=== PATIENT | female | born 1945 | race Caucasian/White ===

== ENCOUNTER → 2020-06-28 | Outpatient (CLI) | payer MEDICARE ==
[~2020-06-28] MED LIST: ATIVAN0.5 MG PO; CALCIUM500 MG PO; DITROPAN XL5 MG PO; FISH OIL500 MG PO; GABAPENTIN300 MG PO; GARLIC400 M1 PO; LIPITOR20 MG PO; LORAZEPAM0.5 MG PO; MAGNESIUM400 MG PO; MELOXICAM7.5 MG PO; ULTRAM50 MG PO; VITAMIN C500 M2 PO
[2020-06-28 11:55] LABS: CREATININE, SERUM 1.82 mg/dL (0.57-1.11)
--- NOTE | 2020-06-28 14:17 | Diagnostic Imaging Report ---
ADDENDUM #1 Images of the pelvis are now available. The original exam is now being completed as a CT of the abdomen and pelvis without intravenous contrast. In addition to the previously discussed findings: There is increased stool burden in the rectum and prominent diverticulosis of the sigmoid colon. No CT evidence of diverticulitis. The pelvic organs appear unremarkable. Postoperative findings of right total hip replacement. No acute osseous injury of the pelvic osseous structures. The soft tissues of the pelvis appear unremarkable. No lymphadenopathy. Signed by: Marisol Rivera MD on 07/02/2020 12:59 PM ORIGINAL REPORT EXAM: CT Abdomen WITHOUT intravenous contrast INDICATION: Aortic aneurysm COMPARISON: CTA abdomen/pelvis of 01/23/2015 TECHNIQUE: The abdomen was scanned utilizing a multidetector helical scanner from the lung base to the iliac crest without administration of IV contrast. Coronal and sagittal reformations were obtained. Routine protocol was performed. IV CONTRAST: None ORAL CONTRAST: None RADIATION DOSE: Total DLP: 631 mGy*cm Dose modulation, iterative reconstruction, and/or weight based adjustment of the mA/kV was utilized to reduce the radiation dose to as low as reasonably achievable. FINDINGS: LOWER THORAX: Normal. HEPATOBILIARY: No focal liver lesions. Unremarkable gallbladder. SPLEEN: No splenomegaly. PANCREAS: No focal masses or ductal dilatation. ADRENALS: No adrenal nodules. KIDNEYS/URETERS: No left hydronephrosis or renal calculi. Nonvisualization of the right kidney. PERITONEUM / RETROPERITONEUM: No free air or fluid. LYMPH NODES: No lymphadenopathy. VESSELS: The infrarenal abdominal aortic aneurysm now measures up to 4.0 x 3.9 cm, increased from 01/23/2015 at which point it measured up to 3.2 cm (today's measurement). Moderate atherosclerotic calcifications of the aorta and major branches. No CT evidence of impending rupture. GI TRACT: Diverticulosis without CT evidence of diverticulitis. No abnormal bowel thickening. No bowel obstruction. BONES AND SOFT TISSUES: No acute osseous injury. No suspicious lytic or blastic lesions. Mild multilevel degenerative changes of the visualized spine. IMPRESSION: Increase in size of infrarenal abdominal aortic aneurysm which now measures up to 4.0 x 3.9 cm compared to 3.2 cm in 2015. Follow-up CTA is recommended in one year to assess for stability. Absent right kidney. Diverticulosis. Signed by: Marisol Rivera MD on 06/28/2020 2:13 PM
== END ==
LOC: CT 11:15
PROVIDERS: ATTEND Internal Medicine Cardiovascular Disease
DX: I71.4 Abdominal aortic aneurysm, without rupture (principal)
CPT/HCPCS: 36415; 74150; 74176; 82565; 84520

== ENCOUNTER → 2023-09-24 | Outpatient (REF) | payer MEDICARE ==
[~2023-09-24] MED LIST changes: +CEPHALEXIN500 MG PO
== END ==
LOC: CT 10:22
PROVIDERS: ATTEND Internal Medicine Infectious Disease
DX: N39.0 Urinary tract infection, site not specified (principal)
CPT/HCPCS: 74176

== ENCOUNTER 2024-03-06 11:17 | Inpatient (IN) | payer MEDICARE ==
[~2024-03-06] VITALS: Ht 154.9 cm; Wt 62.6 kg
[2024-03-06] VITALS (7 sets, daily range): BP systolic 115–138; BP diastolic 20–66; PULSE 64–84; RESP 18–20; TEMP 97.4–98.1; O2SAT 95–98
[2024-03-06 12:07] LABS: BASOPHILS % 0.4 % (0.0-1.0); EOSINOPHILS # (AUTO) 0.1 (0.0-0.4); EOSINOPHILS % 1.2 % (0.0-6.0); HEMATOCRIT 26.3 % (34.2-44.1); HEMOGLOBIN 8.5 g/dL (12.0-16.0); LYMPHOCYTES # (AUTO) 1.8 (1.0-3.2); LYMPHOCYTES % 24.3 % (18.0-39.1); MEAN CORPUSCULAR HEMOGLOBIN 37.6 pg (28-32); MEAN CORPUSCULAR HGB CONC 32.3 g/dL (31-35); MEAN CORPUSCULAR VOLUME 116.4 fL (81-99); MONOCYTES # (AUTO) 0.5 (0.2-0.8); MONOCYTES % 7.2 % (4.4-11.3); NEUTROPHILS % 66.5 % (38.7-80.0); PLATELET COUNT 197 x10e3/uL (140-360); RED BLOOD COUNT 2.26 x10e6/uL (3.6-5.1); RED CELL DISTRIBUTION WIDTH 15.1 % (11.7-14.4); WHITE BLOOD COUNT 7.52 x10e3/uL (4.8-10.8)
[2024-03-06 12:48] LABS: ALBUMIN/GLOBULIN RATIO 0.8 (0.8-2.0); ANION GAP 16.8 mmol/L (8-16); BILIRUBIN,TOTAL 0.3 mg/dL (0.2-1.2); CALCIUM 9.1 mg/dL (8.4-10.2); CREATININE, SERUM 3.94 mg/dL (0.57-1.11); MAGNESIUM 1.5 MG/DL (1.3-2.1); POTASSIUM 4.8 mmol/L (3.5-5.1); TOTAL PROTEIN 6.6 g/dL (6.5-8.1)
[2024-03-06 12:54] LABS: TROPONIN I 0.005 ng/mL (0-0.300)
[2024-03-06] MEDS: SODIUM CHLORIDE 0.9% 1000ML 1,000 ML IV ONE (13:03)
[2024-03-06] MEDS: METHYLPREDNISOLONE SOD SUCC 125 MG/2ML VIAL IV STA (13:03)
[2024-03-06] MEDS: Morphine 4mg INJECTION 4 MG/ML INJ IV ONE (13:13)
[2024-03-06] MEDS: ONDANSETRON HCL INJ 2MG/ML 2ML 2 MG/ML VIAL IV STA (13:13)
[2024-03-06 13:35] LABS: INR 1.1; PROTHROMBIN TIME 14.4 seconds (11.9-14.5)
[2024-03-06 13:36] LABS: PARTIAL THROMBOPLASTIN TIME 30.9 seconds (23.8-35.5)
[2024-03-06] MEDS: ALBUTEROL/IPRATROPIUM 3 ML NEB NEB SCH ×2 (13:38→18:57)
[2024-03-06] MEDS: BUMETANIDE INJ 0.25MG/ML 4ML VIAL IV SCH (15:16)
[2024-03-06] MEDS: SODIUM BICARBONATE 650 MG TAB PO SCH (15:16)
[2024-03-06 16:45] LABS: % IRON SATURATION 10 % (15-50); IRON 29 ug/dL (50-170); TOTAL IRON BINDING CAPACITY 277 ug/dL (261-478); TRANSFERRIN 198 mg/dL (180-382)
[2024-03-06] MEDS: METHYLPREDNISOLONE SOD SUCC 40 MG/ML VIAL 1ML IV SCH (17:54)
[2024-03-06 18:56] LABS: TROPONIN I 0.003 ng/mL (0-0.300)
[2024-03-06] MEDS ORDERED: METHYLPREDNISOLONE SOD SUCC 125 MG/2ML VIAL IV SCH (20:00)
[2024-03-06] MEDS: HEPARIN SOD (PORCINE) 5,000 UNIT/ML VIAL SC SCH (21:24)
[2024-03-07] VITALS (9 sets, daily range): BP systolic 118–127; BP diastolic 54–68; PULSE 70–83; RESP 16–20; TEMP 97.6–98.3; O2SAT 93–100
[2024-03-07 01:57] LABS: CREATINE KINASE 32 IU/L (29-168)
[2024-03-07 02:05] LABS: TROPONIN I < 0.001 ng/mL (0-0.300)
[2024-03-07 05:42] LABS: HEMATOCRIT 22.7 % (34.2-44.1); HEMOGLOBIN 7.5 g/dL (12.0-16.0); LYMPHOCYTES # (AUTO) 0.4 (1.0-3.2); LYMPHOCYTES % 9.3 % (18.0-39.1); MEAN CORPUSCULAR HEMOGLOBIN 37.3 pg (28-32); MEAN CORPUSCULAR VOLUME 112.9 fL (81-99); MONOCYTES % 0.5 % (4.4-11.3); NEUTROPHILS # (AUTO) 3.5 (2.1-6.9); NEUTROPHILS % 89.4 % (38.7-80.0); PLATELET COUNT 198 x10e3/uL (140-360); RED BLOOD COUNT 2.01 x10e6/uL (3.6-5.1); RED CELL DISTRIBUTION WIDTH 14.3 % (11.7-14.4); WHITE BLOOD COUNT 3.86 x10e3/uL (4.8-10.8)
[2024-03-07 06:21] LABS: ALBUMIN 2.6 g/dL (3.5-5.0); ALBUMIN/GLOBULIN RATIO 0.8 (0.8-2.0); ANION GAP 14.7 mmol/L (8-16); BILIRUBIN,TOTAL 0.2 mg/dL (0.2-1.2); CALCIUM 8.9 mg/dL (8.4-10.2); CHOL/HDL RATIO 2.3 (3.0-3.6); CREATININE, SERUM 4.08 mg/dL (0.57-1.11); POTASSIUM 4.7 mmol/L (3.5-5.1); TOTAL PROTEIN 5.8 g/dL (6.5-8.1)
[2024-03-07] MEDS: CALCIUM CARBONATE 500 MG PO SCH (09:00)
[2024-03-07] MEDS: OMEGA PO SCH (09:00)
[2024-03-07] MEDS: FATTY ACIDS PO SCH (09:00)
[2024-03-07] MEDS: OXYBUTYNIN CHLORIDE XL 5 MG TAB PO SCH (10:31)
[2024-03-07] MEDS: ASCORBIC ACID 500 MG TAB PO SCH (10:32)
[2024-03-07] MEDS: MAGNESIUM OXIDE 400 MG TAB PO SCH (10:32)
[2024-03-07] MEDS: LORAZEPAM 0.5 MG TAB PO SCH (10:33)
[2024-03-07] MEDS: ATORVASTATIN 20 MG TAB PO SCH (10:33)
[2024-03-07 10:54] LABS: PLATELET ESTIMATE ADEQUATE; PLATELET MORPHOLOGY COMMENT NORMAL; RBC MORPHOLOGY COMMENT ABNORMAL
[2024-03-07 11:26] LABS: % IRON SATURATION 17 % (15-50); IRON 41 ug/dL (50-170); TOTAL IRON BINDING CAPACITY 248 ug/dL (261-478); TRANSFERRIN 177 mg/dL (180-382)
[2024-03-07] MEDS: EPOETIN ALFA-EPBX 10,000 UNIT/ML VIAL SC ONE (13:45)
[2024-03-07] MEDS: BUMETANIDE 1 MG TAB PO SCH (16:56)
[2024-03-08] VITALS (12 sets, daily range): BP systolic 104–128; BP diastolic 44–70; PULSE 70–101; RESP 17–20; TEMP 97.2–98.2; O2SAT 93–98
[2024-03-08] MEDS: CALCIUM CARBONATE 500 MG CHEWABLE TABS PO PRN (02:09)
[2024-03-08] MEDS: Morphine 2mg Syringe 2 MG/ML SYR IV PRN (02:10)
[2024-03-08 06:17] LABS: ALBUMIN 2.6 g/dL (3.5-5.0); ALBUMIN/GLOBULIN RATIO 0.9 (0.8-2.0); ANION GAP 15.6 mmol/L (8-16); BILIRUBIN,TOTAL 0.2 mg/dL (0.2-1.2); CALCIUM 9.1 mg/dL (8.4-10.2); CREATININE, SERUM 4.26 mg/dL (0.57-1.11); POTASSIUM 4.6 mmol/L (3.5-5.1); TOTAL PROTEIN 5.5 g/dL (6.5-8.1)
[2024-03-08] MEDS: CALCIUM CARBONATE 500 MG CHEWABLE TABS ONE (07:34)
[2024-03-08] MEDS: Morphine 2mg Syringe 2 MG/ML SYR ONE (07:34)
[2024-03-08] MEDS ORDERED: ALBUMIN 5% 0.05 GM/ML BTL IV ONE (10:30)
[2024-03-08] MEDS: ALBUMIN 5% 250ML 250 ML IV ONE (11:14)
[2024-03-08] MEDS: BUMETANIDE INJ 0.25MG/ML 4ML VIAL IV ONE (11:15)
[2024-03-09] VITALS (13 sets, daily range): BP systolic 120–150; BP diastolic 52–89; PULSE 55–160; RESP 18–20; TEMP 97.8–98.6; O2SAT 92–100
[2024-03-09 05:51] LABS: EOSINOPHILS % 0.1 % (0.0-6.0); LYMPHOCYTES # (AUTO) 2.2 (1.0-3.2); LYMPHOCYTES % 33.2 % (18.0-39.1); MEAN CORPUSCULAR HEMOGLOBIN 37.4 pg (28-32); MEAN CORPUSCULAR HGB CONC 32.6 g/dL (31-35); MONOCYTES # (AUTO) 0.7 (0.2-0.8); MONOCYTES % 9.8 % (4.4-11.3); NEUTROPHILS # (AUTO) 3.8 (2.1-6.9); NEUTROPHILS % 56.3 % (38.7-80.0); PLATELET COUNT 154 x10e3/uL (140-360); RED BLOOD COUNT 1.87 x10e6/uL (3.6-5.1); RED CELL DISTRIBUTION WIDTH 15.6 % (11.7-14.4); WHITE BLOOD COUNT 6.75 x10e3/uL (4.8-10.8)
[2024-03-09 06:14] LABS: ALBUMIN 2.7 g/dL (3.5-5.0); ANION GAP 14.1 mmol/L (8-16); BILIRUBIN,TOTAL 0.3 mg/dL (0.2-1.2); CALCIUM 8.8 mg/dL (8.4-10.2); CREATININE, SERUM 4.27 mg/dL (0.57-1.11); POTASSIUM 4.1 mmol/L (3.5-5.1); TOTAL PROTEIN 5.3 g/dL (6.5-8.1)
[2024-03-09 06:23] LABS: HEMATOCRIT 21.5 % (34.2-44.1)
[2024-03-09 10:25] LABS: LYMPHOCYTES % (MANUAL) 26 % (19-48); MONOCYTES % (MANUAL) 5 % (3.4-9.0); NEUTROPHILS % (MANUAL) 69 % (40-74); PLATELET ESTIMATE ADEQUATE; PLATELET MORPHOLOGY COMMENT NORMAL; RBC MORPHOLOGY COMMENT NORMAL
[2024-03-09 11:11] LABS: CREATININE,URINE RANDOM 21.98 mg/dL (47-110)
[2024-03-09] MEDS: AZITHROMYCIN 250 MG TAB PO SCH (13:24)
[2024-03-09] MEDS: SODIUM CHLORIDE 0.9% 250ML 250 ML IV ONE (14:54)
[2024-03-09] MEDS: FUROSEMIDE INJ 10 MG/ML 4 ML VIAL IV ONE (15:20)
[2024-03-09] MEDS: GUAIFENESIN/CODEINE 5 ML LIQD PO PRN (18:20)
[2024-03-09] MEDS: METOPROLOL TARTRATE 25 MG TAB PO SCH (18:39)
[2024-03-09] MEDS: ACETAMINOPHEN 325 MG TAB PO PRN (21:45)
[2024-03-10] VITALS (13 sets, daily range): BP systolic 122–162; BP diastolic 48–70; PULSE 54–82; RESP 16–21; TEMP 97.3–98; O2SAT 95–100
[2024-03-10] MEDS: METOPROLOL TARTRATE 25 MG TAB PO SCH (01:00)
[2024-03-10 06:11] LABS: ALBUMIN 2.6 g/dL (3.5-5.0); ALBUMIN/GLOBULIN RATIO 0.9 (0.8-2.0); ANION GAP 14.4 mmol/L (8-16); BILIRUBIN,TOTAL 0.4 mg/dL (0.2-1.2); CALCIUM 8.9 mg/dL (8.4-10.2); CREATININE, SERUM 4.06 mg/dL (0.57-1.11); POTASSIUM 4.4 mmol/L (3.5-5.1); TOTAL PROTEIN 5.4 g/dL (6.5-8.1)
[2024-03-10 06:39] LABS: BASOPHILS % 0.2 % (0.0-1.0); EOSINOPHILS # (AUTO) 0.1 (0.0-0.4); HEMATOCRIT 28.6 % (34.2-44.1); HEMOGLOBIN 9.4 g/dL (12.0-16.0); LYMPHOCYTES % 34.2 % (18.0-39.1); MEAN CORPUSCULAR HEMOGLOBIN 34.2 pg (28-32); MEAN CORPUSCULAR HGB CONC 32.9 g/dL (31-35); MONOCYTES # (AUTO) 0.7 (0.2-0.8); MONOCYTES % 12.6 % (4.4-11.3); NEUTROPHILS % 51.5 % (38.7-80.0); PLATELET COUNT 125 x10e3/uL (140-360); RED BLOOD COUNT 2.75 x10e6/uL (3.6-5.1); RED CELL DISTRIBUTION WIDTH 25.6 % (11.7-14.4); WHITE BLOOD COUNT 5.87 x10e3/uL (4.8-10.8)
[2024-03-10] MEDS ORDERED: MANNITOL 25% 12.5GM/50 ML VIAL IV PRN (09:30)
[2024-03-10] MEDS ORDERED: ALBUMIN 25% 12.5GM 0.25 GM/ML BTL IV PRN (09:30)
[2024-03-10] MEDS ORDERED: HEPARIN SOD (PORCINE) 1000 UNIT/ML SDV IV PRN (09:30)
[2024-03-10] MEDS ORDERED: SODIUM CHLORIDE 0.9% 1000ML 2,000 ML IV PRN (09:30)
[2024-03-10] MEDS ORDERED: HEPARIN SOD (PORCINE) 1000 UNIT/ML SDV ONE ×2 (10:37→16:54)
[2024-03-10] MEDS ORDERED: FENTANYL CITRATE/PF 100MCG/2 ML INJ ONE (10:37)
[2024-03-10] MEDS ORDERED: MIDAZOLAM HCL 2 MG/2 ML VIAL ONE (10:37)
[2024-03-10] MEDS ORDERED: SODIUM CHLORIDE 0.9% 250ML 250 ML ONE (10:38)
[2024-03-10] MEDS ORDERED: SODIUM CHLORIDE 0.9% 500ML 500 ML ONE (11:17)
[2024-03-10] MEDS ORDERED: LIDOCAINE HCL 1% LOCAL INJ 20 ML VIAL ONE (11:17)
[2024-03-10] MEDS ORDERED: SODIUM CHLORIDE 0.9% 250ML 500 ML IV PRN (12:00)
[2024-03-10] MEDS ORDERED: MANNITOL 25% 12.5GM/50ML 50 ML ONE (16:55)
[2024-03-11] VITALS (11 sets, daily range): BP systolic 110–131; BP diastolic 46–99; PULSE 67–152; RESP 16–21; TEMP 97.9–100; O2SAT 93–100
[2024-03-11] MEDS ORDERED: CEFTRIAXONE 1 GM VIAL ONE (09:13)
[2024-03-11] MEDS ORDERED: OXYBUTYNIN CHLORIDE XL 5 MG TAB PO ONE (09:15)
[2024-03-11] MEDS ORDERED: LORAZEPAM 0.5 MG TAB ONE (09:15)
[2024-03-11] MEDS ORDERED: ATORVASTATIN 20 MG TAB ONE (09:16)
[2024-03-11] MEDS ORDERED: MAGNESIUM OXIDE 400 MG TAB ONE (09:17)
[2024-03-11] MEDS ORDERED: ASCORBIC ACID 500 MG TAB ONE (09:18)
[2024-03-11] MEDS ORDERED: ALBUMIN 25% 12.5GM 50ML 100 ML IV ONE (09:19)
[2024-03-11] MEDS ORDERED: HEPARIN SOD (PORCINE) 1000 UNIT/ML SDV ONE ×2 (09:19→09:23)
[2024-03-11] MEDS ORDERED: SODIUM CHLORIDE 0.9% 1000ML 1,000 ML ONE ×2 (09:20→09:23)
[2024-03-11] MEDS ORDERED: METOPROLOL TARTRATE 25 MG TAB ONE (16:42)
[2024-03-11] MEDS ORDERED: SODIUM BICARBONATE 650 MG TAB ONE (16:42)
[2024-03-11] MEDS ORDERED: AZITHROMYCIN 250 MG TAB ONE (16:43)
[2024-03-12] VITALS (10 sets, daily range): BP systolic 127–148; BP diastolic 52–70; PULSE 65–93; RESP 16–21; TEMP 98.6–100.4; O2SAT 92–98
[2024-03-12] MEDS: METOPROLOL TARTRATE 50 MG TAB PO ONE (00:02)
[2024-03-12] MEDS ORDERED: METOPROLOL SUCCINATE 50 MG TAB XL ONE (00:03)
[2024-03-12] MEDS ORDERED: ALBUTEROL/IPRATROPIUM 3 ML NEB ONE (10:41)
[2024-03-12] MEDS ORDERED: SODIUM BICARBONATE 650 MG TAB ONE (10:41)
[2024-03-12] MEDS ORDERED: IOPAMIDOL 370 MG/ML 100 ML INFUS..BTL INJ ONE (15:48)
[2024-03-13] VITALS (12 sets, daily range): BP systolic 114–137; BP diastolic 53–89; PULSE 61–78; RESP 17–20; TEMP 97–99.9; O2SAT 93–100
[2024-03-13 05:35] LABS: BASOPHILS % 0.5 % (0.0-1.0); EOSINOPHILS # (AUTO) 0.1 (0.0-0.4); EOSINOPHILS % 0.9 % (0.0-6.0); HEMATOCRIT 27.3 % (34.2-44.1); HEMOGLOBIN 8.8 g/dL (12.0-16.0); LYMPHOCYTES # (AUTO) 1.3 (1.0-3.2); MEAN CORPUSCULAR HEMOGLOBIN 34.9 pg (28-32); MEAN CORPUSCULAR HGB CONC 32.2 g/dL (31-35); MEAN CORPUSCULAR VOLUME 108.3 fL (81-99); MONOCYTES # (AUTO) 1.2 (0.2-0.8); MONOCYTES % 18.2 % (4.4-11.3); NEUTROPHILS # (AUTO) 3.9 (2.1-6.9); NEUTROPHILS % 60.1 % (38.7-80.0); PLATELET COUNT 107 x10e3/uL (140-360); RED BLOOD COUNT 2.52 x10e6/uL (3.6-5.1); RED CELL DISTRIBUTION WIDTH 22.8 % (11.7-14.4); WHITE BLOOD COUNT 6.44 x10e3/uL (4.8-10.8)
[2024-03-13 06:17] LABS: ANION GAP 12.7 mmol/L (8-16); CALCIUM 8.8 mg/dL (8.4-10.2); CREATININE, SERUM 2.45 mg/dL (0.57-1.11); POTASSIUM 3.7 mmol/L (3.5-5.1)
[2024-03-13] MEDS ORDERED: HEPARIN SOD (PORCINE) 1000 UNIT/ML SDV ONE ×2 (09:23→09:42)
[2024-03-13] MEDS ORDERED: SODIUM CHLORIDE 0.9% 1000ML 2,000 ML ONE (09:24)
[2024-03-13] MEDS ORDERED: SODIUM BICARBONATE 650 MG TAB ONE (09:42)
[2024-03-13] MEDS ORDERED: OXYBUTYNIN CHLORIDE XL 5 MG TAB PO ONE (09:42)
[2024-03-13] MEDS ORDERED: METOPROLOL TARTRATE 25 MG TAB ONE (09:42)
[2024-03-13] MEDS ORDERED: ATORVASTATIN 20 MG TAB ONE (09:42)
[2024-03-13] MEDS ORDERED: Sodium Chloride 0.9% 50ML Bag ONE (09:42)
[2024-03-13] MEDS ORDERED: MAGNESIUM OXIDE 400 MG TAB ONE (09:42)
[2024-03-13] MEDS ORDERED: LORAZEPAM 0.5 MG TAB ONE (09:42)
[2024-03-13] MEDS ORDERED: AZITHROMYCIN 250 MG TAB ONE (09:42)
[2024-03-13] MEDS ORDERED: SODIUM CHLORIDE 0.9% 1000 ML BAG ONE (09:42)
[2024-03-13] MEDS ORDERED: CEFTRIAXONE 1 GM VIAL ONE (09:42)
[2024-03-13] MEDS ORDERED: ASCORBIC ACID 500 MG TAB ONE (09:42)
[2024-03-13] MEDS ORDERED: ALBUTEROL/IPRATROPIUM 3 ML NEB ONE (09:42)
[2024-03-13 10:16] LABS: ANISOCYTOSIS MODERATE; HYPOCHROMASIA SLIGHT; OVALOCYTES FEW; PLATELET ESTIMATE SLIGHTLY DECREASED; PLATELET MORPHOLOGY COMMENT NORMAL; RBC MORPHOLOGY COMMENT ABNORMAL
[2024-03-13] MEDS: METOPROLOL TARTRATE 25 MG TAB PO ONE (13:21)
[2024-03-13] MEDS ORDERED: MAGNESIUM SULFATE 2GM/50ML 50 ML IV ONE (14:58)
[2024-03-13] MEDS: IOPAMIDOL 370 MG/ML 100 ML INFUS..BTL INJ ONE (16:16)
[2024-03-13] MEDS: METOPROLOL TARTRATE 25 MG TAB PO SCH (19:15)
[2024-03-14] VITALS (11 sets, daily range): BP systolic 106–143; BP diastolic 36–73; PULSE 60–87; RESP 15–21; TEMP 97.2–98.2; O2SAT 94–100
[2024-03-14 05:07] LABS: HEPATITIS B CORE AB TOTAL Negative (Negative)
[2024-03-14] MEDS ORDERED: ALBUTEROL/IPRATROPIUM 3 ML NEB ONE ×3 (09:26→19:31)
[2024-03-14] MEDS ORDERED: CEFTRIAXONE 1 GM VIAL ONE ×2 (10:24→11:00)
[2024-03-14] MEDS ORDERED: SODIUM BICARBONATE 650 MG TAB ONE (11:00)
[2024-03-14] MEDS ORDERED: OXYBUTYNIN CHLORIDE XL 5 MG TAB PO ONE (11:00)
[2024-03-14] MEDS ORDERED: MAGNESIUM OXIDE 400 MG TAB ONE (11:00)
[2024-03-14] MEDS ORDERED: ASCORBIC ACID 500 MG TAB ONE (11:00)
[2024-03-14] MEDS ORDERED: AZITHROMYCIN 250 MG TAB ONE ×3 (11:00→19:31)
[2024-03-14] MEDS ORDERED: Sodium Chloride 0.9% 50ML Bag ONE (11:00)
[2024-03-14] MEDS ORDERED: ATORVASTATIN 20 MG TAB ONE (11:00)
[2024-03-14] MEDS ORDERED: METOPROLOL TARTRATE 25 MG TAB ONE ×2 (11:00→19:31)
[2024-03-14] MEDS ORDERED: GUAIFENESIN/CODEINE 5 ML LIQD ONE (11:00)
[2024-03-14] MEDS ORDERED: MAGNESIUM SULFATE 2GM/50ML IV ONE (11:00)
[2024-03-14 11:03] LABS: HEPATITIS B SURFACE AG (P) Nonreactive; HEPATITIS C ANTIBODY Nonreactive
== END 2024-03-14 20:45 | disposition home or self-care (01) | DRG 193 ==
LOC: ER 11:27 → ERHOLD 13:08 → MED/SURG2 14:13
PROVIDERS: ADMIT Family Medicine; ATTEND Family Medicine
PROC: 30233N1 Transfusion of Nonautologous Red Blood Cells into Peripheral Vein, Percutaneous Approach (ICD-10-PCS; 2024-03-09)
PROC: 5A1D70Z Performance of Urinary Filtration, Intermittent, Less than 6 Hours Per Day (ICD-10-PCS; principal; 2024-03-10)
PROC: 02HV33Z Insertion of Infusion Device into Superior Vena Cava, Percutaneous Approach (ICD-10-PCS; 2024-03-10)
PROC: 0JH63XZ Insertion of Tunneled Vascular Access Device into Chest Subcutaneous Tissue and Fascia, Percutaneous Approach (ICD-10-PCS; 2024-03-10)
PROC: 5A1D70Z Performance of Urinary Filtration, Intermittent, Less than 6 Hours Per Day (ICD-10-PCS; 2024-03-11)
PROC: 5A1D70Z Performance of Urinary Filtration, Intermittent, Less than 6 Hours Per Day (ICD-10-PCS; 2024-03-13)
DX: J18.9 Pneumonia, unspecified organism (principal); E43 Unspecified severe protein-calorie malnutrition; I50.33 Acute on chronic diastolic (congestive) heart failure; N18.6 End stage renal disease; J96.01 Acute respiratory failure with hypoxia; J44.0 Chronic obstructive pulmonary disease with (acute) lower respiratory infection; J44.1 Chronic obstructive pulmonary disease with (acute) exacerbation; I13.2 Hypertensive heart and chronic kidney disease with heart failure and with stage 5 chronic kidney disease, or end stage renal disease; K55.1 Chronic vascular disorders of intestine; K21.9 Gastro-esophageal reflux disease without esophagitis; M40.202 Unspecified kyphosis, cervical region; Z96.649 Presence of unspecified artificial hip joint; D63.1 Anemia in chronic kidney disease; J43.9 Emphysema, unspecified; I71.40 Abdominal aortic aneurysm, without rupture, unspecified; Z96.0 Presence of urogenital implants; Z87.891 Personal history of nicotine dependence; E66.01 Morbid (severe) obesity due to excess calories; R53.81 Other malaise; F41.9 Anxiety disorder, unspecified; I48.91 Unspecified atrial fibrillation; I25.10 Atherosclerotic heart disease of native coronary artery without angina pectoris; M19.90 Unspecified osteoarthritis, unspecified site; N39.498 Other specified urinary incontinence; Z83.3 Family history of diabetes mellitus; Z82.49 Family history of ischemic heart disease and other diseases of the circulatory system; H91.90 Unspecified hearing loss, unspecified ear; E78.00 Pure hypercholesterolemia, unspecified; I77.1 Stricture of artery; I72.2 Aneurysm of renal artery; Z99.81 Dependence on supplemental oxygen; Z68.26 Body mass index [BMI] 26.0-26.9, adult
CPT/HCPCS: 36415; 36558; 71045; 71250; 71275; 74018; 74174; 74470; 76937; 77001; 80048; 80053; 80061; 82550; 82575; 82607; 82728; 83540; 83690; 83735; 83880; 84443; 84466; 84484; 85025; 85610; 85730; 86704; 86705; 86706; 86707; 86803; 86850; 86900; 86920; 87040; 87340; 87350; 87400; 87420; 93005; 93306; 94640; 94799; 99284; C1769; C1892; J0690; J0696; J1644; J1940; J2001; J2150; J2250; J2270; J2405; J2919; J3475; J7030; J7040; J7050; P9016; Q9967; U0002